=== PATIENT | female | born 1970 | race Caucasian/White ===

== ENCOUNTER 2018-03-04 04:10 | Emergency (ER) | payer MEDICAID ==
[2018-03-04] MEDS: ONDANSETRON 4 MG INJ IV (04:46)
[2018-03-04] MEDS: HYDROmorphONE 1 MG/ML SYG IV (04:46)
[2018-03-04] MEDS: KETOROLAC 30 MG INJ IV (04:47)
[2018-03-04] MEDS: SOD CHLORIDE 0.9% 1,000 ML IV (04:47)
[2018-03-04 04:51] LABS: ADD MAN DIFF? NO
[2018-03-04 04:52] LABS: WHITE BLOOD COUNT 9.7 10^3/ul (4.8-10.8)
[2018-03-04 04:52] LABS: BASOPHILS % 0.2 % (0.0-2.0); EOSINOPHILS % 0.2 % (0.0-7.0); HEMOGLOBIN 11.6 g/dl (12.0-16.0); LYMPHOCYTES % 10.7 % (15.0-51.0); MEAN CORPUSCULAR HEMOGLOBIN 29.9 pg (29.0-33.0); MEAN CORPUSCULAR HGB CONC 33.1 g/dl (32.0-37.0); MEAN CORPUSCULAR VOLUME 90.2 fl (82.0-101.0); MEAN PLATELET VOLUME 9.8 fl (7.4-10.4); MONOCYTE # 0.8 10^3/ul (0.3-0.9); MONOCYTES % 7.7 % (0.0-11.0); NEUTROPHIL # 7.9 10^3/ul (1.6-7.5); NEUTROPHILS % 80.9 % (39.0-77.0); PLATELET COUNT 328 10^3/UL (140-415); RED BLOOD COUNT 3.88 10^6/ul (4.20-5.40); RED CELL DISTRIBUTION WIDTH 12.2 % (11.5-14.5)
[2018-03-04 05:03] LABS: ADD UMIC YES; UR ASCORBIC ACID NEGATIVE (NEGATIVE); UR BACTERIA FEW /HPF (NONE SEEN); UR BILIRUBIN (Dip) NEGATIVE (NEGATIVE); UR BLOOD (Dip) 3+ mg/dL (NEGATIVE); UR CLARITY CLOUDY (CLEAR); UR COLOR YELLOW (YELLOW); UR GLUCOSE (Dip) NEGATIVE (NEGATIVE); UR KETONES (Dip) NEGATIVE (NEGATIVE); UR LEUKOCYTE ESTERASE (Dip) 1+ Leu/ul (NEGATIVE); UR MUCUS FEW /HPF (NONE SEEN); UR NITRITE (Dip) NEGATIVE (NEGATIVE); UR RBC > 182 /HPF (0-5); UR SPECIFIC GRAVITY (Dip) 1.024 (1.003-1.030); UR SQUAMOUS EPITHELIAL CELL FEW /HPF (FEW); UR TOTAL PROTEIN (Dip) 1+ mg/dl (NEGATIVE); UR UROBILINOGEN (Dip) NEGATIVE (NEGATIVE); UR WBC 35 /HPF (0-5)
[2018-03-04 05:11] LABS: ALANINE AMINOTRANSFERASE 24 IU/L (13-69); ALBUMIN/GLOBULIN RATIO 1.73; ALKALINE PHOSPHATASE 56 IU/L (42-121); ANION GAP 10 (5-13); ASPARTATE AMINO TRANSFERASE 22 IU/L (15-46); BILIRUBIN,INDIRECT 0.4 mg/dl (0-1.1); BILIRUBIN,TOTAL 0.4 mg/dl (0.2-1.3); BLOOD UREA NITROGEN 14 mg/dl (7-20); CALCIUM 8.8 mg/dl (8.4-10.2); CARBON DIOXIDE 23 mmol/L (21-31); CHLORIDE 108 mmol/L (97-110); Estimated GFR > 60 mL/min (>60); GLUCOSE 101 mg/dl (70-220); LIPASE 91 U/L (23-300); POTASSIUM 3.8 mmol/L (3.5-5.1); SODIUM 141 mmol/L (135-144); TOTAL PROTEIN 6.3 g/dl (6.1-8.1)
== END 2018-03-04 06:17 | disposition home or self-care (01) ==
LOC: E/R 04:10
DX: R10.32 Left lower quadrant pain (principal)
CPT/HCPCS: 36415; 74176; 80053; 81001; 81025; 83690; 85025; 96361; 96374; 96375; 99285-25